=== PATIENT | female | born 1950 | race Caucasian/White ===

== ENCOUNTER 2024-11-06 16:00 | Emergency (ER) | payer BC ==
[2024-11-06 16:47] LABS: Absolute Basophils 0.1 K/uL (0-0.5); Absolute Lymphocytes (CBC) 1.7 K/uL (0.7-4.9); Absolute Monocytes 0.7 K/uL (0.1-1.3); Absolute Neutrophil 6.8 K/uL (1.8-8.0); Basophils % 0.6 % (0-1.3); Eosinophils % 0.4 % (0-4.4); Hematocrit 42.6 % (36.0-45.0); Lymphocytes % 18.3 % (15.3-44.8); MCH 30.3 pg (27.0-35.0); MCHC 32.9 g/dL (32.0-36.0); MCV 92.2 fL (80-100); MPV 7.7 fL (7.6-11.3); Monocytes % 7.2 % (3.3-12.3); Neutrophils % 73.5 % (41.7-73.7); Nucleated Red Blood Cells % 0.1 % (0-0); Platelets 222 thou/uL (152-406); RBC Red Blood Cell Count 4.62 M/uL (3.86-4.86)
--- NOTE | 2024-11-06 16:51 | RAD REPORT ---
EXAM: CT brain without contrast HISTORY: MENTAL STATUS CHANGE COMPARISON: None TECHNIQUE: Multiple contiguous axial images were obtained and a CT of the brain without contrast. Sag ittal and coronal reformats were performed. One or more of the following dose reduction techniques were used: Automated exposure control, adjust ment of the mA and/or kV according to patient size, and/or iterative reconstruction. FINDINGS: There is evidence of acute hemorrhage involving both frontal lobes, this includes left frontal subdur al blood measuring 5 mm in thickness, bilateral frontal subarachnoid blood and intraparenchymal blood in both frontal lobes.. Subdural hematoma extends superiorly along the left superiorly measurin g up to 6 mm in thickness. No midline shift is seen. No hydrocephalus. Trace pneumocephalus is seen right posterior occipital region likely related to large nondepressed right parieto-occipital skull f racture which extends to involve a portion of the right mastoid air cell. The visualized paranasal sinuses are essentially clear. IMPRESSION: Extensive acute intracranial trauma related findings as detailed. There is a large right-sided pariet o-occipital skull fracture extending to involve the right temporal bone as detailed. Acute left subdural hematoma is identified with acute subarachnoid blood as well as intraparenchymal hemorrhage in both frontal lobes. No hydrocephalus or midline shift shift. EXAM: CT of the cervical spine without contrast HISTORY: Neck pain, injury MENTAL STATUS CHANGE TECHNIQUE: Multiple contiguous axial images were obtained in a CT of the cervical spine without contr ast. Sagittal and coronal reformats were performed. FINDINGS: The vertebral bodies demonstrate normal height and alignment. No evidence of acute fracture or subluxation.. Moderate lower cervical degenerative spondylosis. No prevertebral soft tissue swelling is seen. The posterior facets are well aligned. Normal alignment of the skull base with the cervical spine is seen. Enlarged thyroid with large left thyroid nodule measuring 4 cm. The lung apices are unremarkable. IMPRESSION: No evidence of acute osseous abnormality of the cervical spine. The findings were communicated with Angie Price at 11/06/2024 4:48 PM by telephone.
[2024-11-06 16:54] LABS: PT Prothrombin Time 11.5 SECONDS (9.4-12.5); PTT, Activated Partial Thromb 31.5 SECONDS (24.3-36.9); Protime INR 1.1
[2024-11-06 17:07] LABS: ALT/SGPT 21 U/L (13-56); Albumin 3.3 g/dL (3.4-5.0); Albumin/Globulin Ratio 0.9 (1.1-1.8); Alkaline Phosphatase 68 U/L (45-117); Anion Gap 9.1 mEq/L (5.0-15.0); BUN Blood Urea Nitrogen 16 mg/dL (7-18); Bicarbonate 25 mEq/L (21-32); Bilirubin Direct 0.3 mg/dL (0-0.2); Bilirubin Indirect, Calculated 1.1 mg/dL (0.2-0.8); Bilirubin Total 1.4 mg/dL (0.2-1.0); Globulin 3.7 g/dL (2.3-3.5); Glomerular Filtration Rate 57 ml/min (=/>90); Glucose Level 119 mg/dL (74-106); Sodium Level 138 mEq/L (136-145); Troponin High Sensitivity 8.7 pg/mL (<58.9)
[2024-11-06 17:08] LABS: AST/SGOT 31 U/L (15-37); Potassium 4.1 mEq/L (3.5-5.1)
--- NOTE | 2024-11-06 17:09 | EDPHYS ---
Physician Documentation [facility] Name: Helen Price Age: 73 yrs Sex: Female : 1950 Arrival Date: 11/06/2024 Time: 16:00 Bed 20 Private MD: ED Physician Angie Price HPI: 11/06 16:57 This 73 yrs old Female presents to ER via EMS with complaints of Altered Mental Status, sp3 fall with head injury. 16:57 73-year-old female with a history of hyperlipidemia presents via EMS for presumed fall. sp3 Patient was found by outside of their RV on the concrete pad with small hematoma to the back of her head. When they arrived she was prone covered by blanket. She was maintaining her airway but was unable to speak. She does not follow commands but is awake and alert. Grossly moves all extremities. EMS gave 8 mg of intranasal Narcan due to small pupil size based on their exam. This had no effect. Patient was transferred here and is apparently and route. ROS, history and physical limited secondary to patient nonverbal.. Historical: - Allergies: 17:00 Bees; kc6 - Home Meds: 16:12 Unable to obtain [Active]; kc6 - PMHx: 16:12 Hypercholesterolemia; kc6 17:00 Osteoporosis; kc6 - PSHx: 17:00 None; kc6 - Immunization history:: Adult Immunizations unknown. - Infectious Disease History:: Denies. - Social history:: Smoking status: unknown. ROS: 17:00 Unable to obtain ROS due to altered mental status, sp3 Exam: 17:00 Chest/axilla: Normal chest wall appearance and motion. Nontender with no deformity. sp3 No lesions are appreciated. Cardiovascular: Regular rate and rhythm with a normal S1 and S2. No gallops, murmurs, or rubs. Normal PMI, no JVD. No pulse deficits. Respiratory: Lungs have equal breath sounds bilaterally, clear to auscultation and percussion. No rales, rhonchi or wheezes noted. No increased work of breathing, no retractions or nasal flaring. Abdomen/GI: Soft, non-tender, with normal bowel sounds. No distension or tympany. No guarding or rebound. No evidence of tenderness throughout. Skin: Warm, dry with normal turgor. Normal color with no rashes, no lesions, and no evidence of cellulitis. 17:00 Head/face: Right sided low parietal hematoma noted.. 17:00 Unable to obtain exam due to altered mental status, 17:09 ECG was reviewed by the Attending Physician. EKG demonstrates normal sinus rhythm at 77 sp3 bpm with normal intervals, normal QRS, normal axis, nonspecific diffuse ST/T changes without evidence of acute ischemia. Vital Signs: 16:09 BP 160 / 94; Pulse 77; Resp 15 S; Temp 97.8(TE); Pulse Ox 96% on R/A; kc6 16:43 BP 161 / 83; Pulse 95; Resp 18 S; Pulse Ox 96% on R/A; kc6 17:09 BP 167 / 86; Pulse 96; Resp 20 S; Pulse Ox 93% on R/A; Weight 77.11 kg; Height 5 ft. 6 kc6 in. ; 17:36 BP 177 / 86; Pulse 100; Resp 18 S; Pulse Ox 94% on R/A; kc6 17:09 Body Mass Index 27.44 (77.11 kg, 167.64 cm) kc6 NIH Stroke Scale Scores: 16:00 NIHSS Score: 5 kc6 Elyse Coma Score: 16:00 Eye Response: spontaneous(4). Motor Response: localizes pain(5). Verbal Response: kc6 none(1). Total: 10. Trauma Score (Adult): 16:00 Eye Response: spontaneous(1); Verbal Response: none(0); Motor Response: localizes kc6 pain(1); Systolic BP: > 89 mm Hg(4); Respiratory Rate: 10 to 29 per min(4); Elyse Score: 10; Trauma Score: 10 MDM: 16:12 Medical Screening Exam initiated sp3 17:06 Data reviewed: vital signs, EMS record, lab test result(s), radiologic studies. ED sp3 course: Patient placed in room and immediate stat CT scan ordered which demonstrates large parietal occipital skull fracture with left-sided subdural hemorrhage and associated subarachnoid hemorrhage as well as intraparenchymal spread of blood. Patient is currently awake, alert but noncommunicative coupled with not following commands fully. She is maintaining her airway. Blood pressure is currently 161/80 with normal remainder vital signs. Will watch closely. I discussed the case with transfer center at [facility] who is excepted to the ER without conference given her findings. CBC and coagulation profile are normal. Chemistries are pending. We will now transfer patient emergently to [facility] trauma center.. 11/06 16:22 Order name: Acetaminophen; Complete Time: 17:21 11/06 16:22 Order name: Basic Metabolic Panel; Complete Time: 17:21 3 11/06 16:22 Order name: CBC with Diff; Complete Time: 17:02 11/06 16:22 Order name: ETOH Level; Complete Time: 17:21 11/06 16:22 Order name: Hepatic Function; Complete Time: 17:21 11/06 16:22 Order name: PT-INR; Complete Time: 16:56 11/06 16:22 Order name: Ptt, Activated; Complete Time: 16:56 11/06 16:22 Order name: Salicylate; Complete Time: 17:21 11/06 16:22 Order name: Urinalysis w/ reflexes; Complete Time: 17:21 11/06 16:22 Order name: Urine Drug Screen; Complete Time: 17:28 11/06 16:23 Order name: Troponin High Sensitivity; Complete Time: 17:21 11/06 16:23 Order name: CT Head C Spine; Complete Time: 16:51 11/06 16:56 Order name: CXR XRAY; Complete Time: 17:11/06 16:22 Order name: EKG; Complete Time: 16:23 11/06 16:22 Order name: EKG - Nurse/Tech; Complete Time: 16:23 11/06 16:22 Order name: IV Saline Lock; Complete Time: 16:23 11/06 16:22 Order name: Labs collected and sent; Complete Time: 16:23 11/06 16:22 Order name: Suicide Screening ([place]); Complete Time: 16:23 Administered Medications: 17:23 Drug: Labetalol IV 10 mg IV at calculated rate once Route: IV; Rate: calculated rate; kc6 Site: right antecubital; 17:43 Follow up: Response: No adverse reaction; Blood pressure is unchanged; IV Status: kc6 Completed infusion; IV Intake: 2ml Disposition: 17:07 Critical Care:. sp3 Disposition Summary: 11/06/24 17:08 Transfer Ordered Notes: Transfer Location: [facility] sp3 Reason: Higher level of care sp3 Condition: Critical sp3 Problem: new sp3 Symptoms: have worsened sp3 Accepting Physician: [facility] neurosurgical trauma team(11/06/24 17:43) kc6 Diagnosis - Fall, skull fracture, traumatic subdural hemorrhage, traumatic subarachnoid sp3 hemorrhage, traumatic intraparenchymal hemorrhage Forms: - Medication Reconciliation Form sp3 - SBAR form sp3 Critical care time excluding procedures: 17:07 Critical care time: Bedside Care: 10 minutes, Consultation: 10 minutes, Family sp3 Intervention: 10 minutes. Total time: 30 minutes NIH Stroke Scale - NIH Stroke Score Date: 11/06/2024 Time: 16:00 Total Score = 5 10. Dysarthria (speech clarity - read or repeat words) - 1(Mild to Moderate) 11. Extinction and Inattention (visual/tactile/auditory/spatial/personal) - 0(No abnormality) 1a. Level of Consciousness (LOC) - 0(Alert) 1b. Level of Consciousness (LOC) (Month \T\ Age) - 1(One) 1c. LOC Commands (Open \T\ Closes Eyes/Fish Hatchery Worker) - 1(One) 2. Best Gaze (Lateral Gaze Paresis) - 0(Normal) 3. Visual Field Loss - 0(No visual loss) 4. Facial Palsy - 0(Normal) 5a. Left Arm: Motor (10-second hold) - 0(No drift) 5b. Right Arm: Motor (10-second hold) - 0(No drift) 6a. Left Leg: Motor (5-second hold - always test supine) - 0(No drift) 6b. Right Leg: Motor (5-second hold - always test supine) - 0(No drift) 7. Limb Ataxia (finger/nose \T\ heel/morris - test with eyes open) - 0(Absent) 8. Sensory Loss (pinprick arms/legs/face) - 0(Normal) 9. Best Language: Aphasia (description/naming/reading) - 2(Severe aphasia) Initials: kc6 Signatures: Dispatcher [employer] Angie Durán MD MD sp3 Raysa Hurley RN RN kc6 Corrections: (The following items were deleted from the chart) 16:23 16:23 ACETAMINOPHEN+C.LAB.BRZ ordered. EDMS EDMS 16:23 16:23 BASIC METABOLIC PANEL+C.LAB.BRZ ordered. EDMS EDMS 16:23 16:23 CBC+H.LAB.BRZ ordered. EDMS EDMS 16:23 16:23 ETHANOL+C.LAB.BRZ ordered. EDMS EDMS 16:23 16:23 HEPATIC FUNCTION+C.LAB.BRZ ordered. EDMS EDMS 16:23 16:23 PROTIME (+INR)+COAG.LAB.BRZ ordered. EDMS EDMS 16:23 16:23 PTT, ACTIVATED+COAG.LAB.BRZ ordered. EDMS EDMS 16:23 16:23 SALICYLATE+C.LAB.BRZ ordered. EDMS EDMS 16:23 16:23 Urinalysis+U.LAB.BRZ ordered. EDMS EDMS 16:23 16:23 URINE DRUG SCREEN+UC.LAB.BRZ ordered. EDMS EDMS 17:15 16:12 Allergies: Unable to obtain; kc6 kc6 17:15 16:12 PSHx: Unable to Obtain; kc6 kc6 17:43 17:08 [facility] neurosurgical trauma team sp3 kc6
--- NOTE | 2024-11-06 17:09 | ER ---
Nurse's Notes [facility] Name: Helen Price Age: 73 yrs Sex: Female : 1950 Arrival Date: 11/06/2024 Time: 16:00 Bed 20 Private MD: Diagnosis: Fall, skull fracture, traumatic subdural hemorrhage, traumatic subarachnoid hemorrhage, traumatic intraparenchymal hemorrhage Presentation: 11/06 16:09 Chief complaint: EMS states: they were toned out for a fall. upon EMS arrival pt was kc6 found prone on the floor covered up. EMS reports says she hit her head, unknown LOC or if on blood thinners. EMS gave 8mg of Narcan intranasally. Coronavirus screen: At this time, the client does not indicate any symptoms associated with coronavirus-19. Ebola Screen: No symptoms or risks identified at this time. Initial Sepsis Screen: Does the patient meet any 2 criteria? Altered Mental Status. Does the patient have a suspected source of infection? No. Patient's initial sepsis screen is negative. Risk Assessment: Do you want to hurt yourself or someone else? Unable to obtain. Onset of symptoms was November 06, 2024. Care prior to arrival: Medication(s) given: Normal saline infusion, 500 mL, Narcan 8mg Intranasal IV initiated. 20 GA, in the left antecubital area, Glucose check: 138 Oxygen administered. via nasal cannula. 16:09 Method Of Arrival: EMS: [facility] 16:09 Acuity: ASHLEY 2 kc6 Historical: - Allergies: 17:00 Bees; kc6 - Home Meds: 16:12 Unable to obtain [Active]; kc6 - PMHx: 16:12 Hypercholesterolemia; kc6 17:00 Osteoporosis; kc6 - PSHx: 17:00 None; kc6 - Immunization history:: Adult Immunizations unknown. - Infectious Disease History:: Denies. - Social history:: Smoking status: unknown. Screenin:00 [place] Swallow Protocol Exclusion Criteria: Unable to remain alert for testing: Yes Brief [facility] Cognitive Screen What is your name? Normal, Where are you right now? Abnormal What year is it? Abnormal Oral Mechanism Examination Facial Symmetry: Abnormal Motion: Abnormal Lip Closure: Abnormal Oral Mechanism Result: Abnormal: FAIL. 3 oz Water Swallow Challenge: Pt able to drink all water without stopping, coughing, choking or throat clearing: No Result: FAIL MD Notified: Angie Price MD. 16:00 VAN Screening: Arm Drift: Minor drift. Visual Disturbance: No visual disturbance noted. kc6 Aphasia: Expressive aphasia noted. Provider notified of +VAN scoring. Neglect: No neglect noted. 16:13 [facility] ED Fall Risk Assessment (Adult) History of falling in the last 3 months, kc6 including since admission Yes- physiologic fall (2 pts) Confusion or Disorientation Yes (5 pts) Intoxicated or Sedated No (0 pts) Impaired Gait No (0 pts) Mobility Assist Device Used No (0 pt) Altered Elimination No (0 pt) Score/Fall Risk Level 3 or more points = High Risk Oriented to surroundings, Maintained a safe environment, Educated pt \\T\\ family on fall prevention, incl call for assistance when getting out of bed. Abuse screen: Denies threats or abuse. Denies injuries from another. Nutritional screening: No deficits noted. Tuberculosis screening: No symptoms or risk factors identified. Assessment: 16:13 General: Appears in no apparent distress. comfortable, well groomed, well developed, kc6 Behavior is calm, cooperative, drowsy. Pain: Unable to use pain scale. Patient is disoriented. Neuro: Level of Consciousness is confused, post ictal, Oriented to none Facial symmetry appears normal, Facial symmetry: tongue is midline, Pupils are pinpoint, Seizure activity Patient is post-ictal at this time. Cardiovascular: Capillary refill < 3 seconds Rhythm is regular. Respiratory: Airway is patent Trachea midline Respiratory effort is even, unlabored, Respiratory pattern is regular, symmetrical. GI: No signs and/or symptoms were reported involving the gastrointestinal system. : No signs and/or symptoms were reported regarding the genitourinary system. EENT: No signs and/or symptoms were reported regarding the EENT system. Derm: No signs and/or symptoms reported regarding the dermatologic system. Skin is intact, is healthy with good turgor, Skin is pink, warm \\T\\ dry. Musculoskeletal: No signs and/or symptoms reported regarding the musculoskeletal system. Circulation, motion, and sensation intact. Range of motion: intact in all extremities. 16:34 Reassessment: pt to CT via stretcher with this nurse. pt with eyes open and smiling. pt kc6 stating her name only at this time. 17:10 Reassessment: Patient appears in no apparent distress at this time. No changes from kc6 previously documented assessment. Patient and/or family updated on plan of care and expected duration. Pain level reassessed. 17:12 Reassessment: Dr. Price at bedside speaking with regarding patients condition. kc6 states, "she was carrying too much stuff upstairs and she fell backwards and hit her head on the concrete." states they were loading stuff up onto a truck. 17:39 Reassessment: life flight at bedside. pts blood pressure is 177/86. verbal orders kc6 received from Dr. Price to administer 20mg of Labetalol IV. administered by life flight RN from their own supply. 17:43 Reassessment: Patient appears in no apparent distress at this time. No changes from kc6 previously documented assessment. Patient and/or family updated on plan of care and expected duration. Pain level reassessed. Vital Signs: 16:09 BP 160 / 94; Pulse 77; Resp 15 S; Temp 97.8(TE); Pulse Ox 96% on R/A; kc6 16:43 BP 161 / 83; Pulse 95; Resp 18 S; Pulse Ox 96% on R/A; kc6 17:09 BP 167 / 86; Pulse 96; Resp 20 S; Pulse Ox 93% on R/A; Weight 77.11 kg; Height 5 ft. 6 kc6 in. ; 17:36 BP 177 / 86; Pulse 100; Resp 18 S; Pulse Ox 94% on R/A; kc6 17:09 Body Mass Index 27.44 (77.11 kg, 167.64 cm) kc6 [place] Coma Score: 16:00 Eye Response: spontaneous(4). Motor Response: localizes pain(5). Verbal Response: kc6 none(1). Total: 10. Trauma Score (Adult): 16:00 Eye Response: spontaneous(1); Verbal Response: none(0); Motor Response: localizes kc6 pain(1); Systolic BP: > 89 mm Hg(4); Respiratory Rate: 10 to 29 per min(4); Elyse Score: 10; Trauma Score: 10 NIH Stroke Scale Scores: 16:00 NIHSS Score: 5 kc6 ED Course: 16:09 Patient arrived in ED. kc6 16:11 Angie Price MD is Attending Physician. sp3 16:12 Triage completed. kc6 16:12 Arm band placed on. kc6 16:13 Patient has correct armband on for positive identification. Placed in gown. Bed in low kc6 position. Call light in reach. Side rails up X2. security monitor on. Pulse ox on. NIBP on. Door closed. Noise minimized. Lights dimmed. Warm blanket given. Pillow given. Verbal reassurance given. 16:13 Maintain EMS IV. Dressing intact. Good blood return noted. Site clean \\T\\ dry. Gauge \\T\\ naomi 6 site: 20G LAC. Flushed with 10 mL NS. Patient maintains SpO2 saturation greater than 95% on room air. 16:15 Raysa Hurley RN is Primary Nurse. kc6 16:34 CT Head C Spine In Process Unspecified. EDMS 16:43 Inserted saline lock: 22 gauge in right antecubital area, using aseptic technique. kc6 Blood collected. Flushed with 10 mL NS. 17:00 Repositioned patient. Cleaned of incontinence. Linen changed. kc6 17:00 initiated transfer with Ann at [facility]. bc6 17:00 Rigid cervical collar applied and checked by physician. kc6 17:00 Straight cath inserted, using sterile technique, 14 Fr. Specimen obtained. Returned kc6 clear yellow urine. Patient tolerated well. 17:09 accepted. bc6 17:16 CXR XRAY In Process Unspecified. EDMS 17:41 No provider procedures requiring assistance completed. Patient transferred, IV remains kc6 in place. Administered Medications: 17:23 Drug: Labetalol IV 10 mg IV at calculated rate once Route: IV; Rate: calculated rate; kc6 Site: right antecubital; 17:43 Follow up: Response: No adverse reaction; Blood pressure is unchanged; IV Status: kc6 Completed infusion; IV Intake: 2ml Medication: 17:42 VIS not applicable for this client. kc6 Intake: 17:43 IV: 2ml; Total: 2ml. kc6 Outcome: 17:08 ER care complete, transfer ordered by . sp3 17:42 Transferred by helicopter to [facility], Transfer form completed. Note: kc6 report called to NAN Wang 17:42 critical 17:42 Instructed on the need for transfer, 17:43 Patient left the ED. kc6 NIH Stroke Scale - NIH Stroke Score Date: 11/06/2024 Time: 16:00 Total Score = 5 10. Dysarthria (speech clarity - read or repeat words) - 1(Mild to Moderate) 11. Extinction and Inattention (visual/tactile/auditory/spatial/personal) - 0(No abnormality) 1a. Level of Consciousness (LOC) - 0(Alert) 1b. Level of Consciousness (LOC) (Month \\T\\ Age) - 1(One) 1c. LOC Commands (Open \\T\\ Closes Eyes/[employer] Server) - 1(One) 2. Best Gaze (Lateral Gaze Paresis) - 0(Normal) 3. Visual Field Loss - 0(No visual loss) 4. Facial Palsy - 0(Normal) 5a. Left Arm: Motor (10-second hold) - 0(No drift) 5b. Right Arm: Motor (10-second hold) - 0(No drift) 6a. Left Leg: Motor (5-second hold - always test supine) - 0(No drift) 6b. Right Leg: Motor (5-second hold - always test supine) - 0(No drift) 7. Limb Ataxia (finger/nose \\T\\ heel/morris - test with eyes open) - 0(Absent) 8. Sensory Loss (pinprick arms/legs/face) - 0(Normal) 9. Best Language: Aphasia (description/naming/reading) - 2(Severe aphasia) Initials: kc6 Signatures: Dispatcher [employer] Angie Durán MD MD sp3 Raysa Hurley RN RN kc6 Teodora Beckham 6 Corrections: (The following items were deleted from the chart) 17:11 16:13 General: Appears in no apparent distress. comfortable, well groomed, well kc6 developed, Behavior is calm, cooperative, appropriate for age, drowsy, kc6 17:11 16:13 Neuro: Level of Consciousness is confused, post ictal, Oriented to none kc6 Facial symmetry appears normal, Facial symmetry: tongue is midline, Pupils are pinpoint, Seizure activity Patient is post-ictal at this time. kc6 17:14 17:12 Reassessment: Dr. Price at bedside speaking with regarding kc6 patients condition kc6 17:15 16:12 Allergies: Unable to obtain; kc6 kc6 17:15 16:12 PSHx: Unable to Obtain; kc6 kc6 17:16 17:09 BP 167 / 86; Pulse 96bpm; Resp 20bpm; Spontaneous; Pulse Ox 93% RA; kc6 kc6 17:39 17:12 Reassessment: Dr. Price at bedside speaking with regarding kc6 patients condition. states, "she was carrying too much stuff upstairs and she fell backwards and hit her head." [facility] 17:45 17:19 life flight called [place] [id number] 17:45 17:43 flight here 6 6
[2024-11-06 17:19] LABS: Specific Gravity 1.018 (1.005-1.030); Sqamous Epithelial None Seen /HPF (None Seen); Urine Bacteria None Seen /HPF (<20); Urine Bilirubin NEGATIVE (Negative); Urine Blood 1+ (Negative); Urine Clarity Clear (Clear); Urine Color Light-Yellow (Yellow); Urine Culture Reflex Order NOT NEEDED; Urine Glucose NEGATIVE (Negative); Urine Ketones TRACE (Negative); Urine Microscopic Reflex YN ORDER UMIC; Urine Nitrite NEGATIVE (Negative); Urine Protein NEGATIVE (Negative); Urine Urobilinogen Normal (Normal); Urine WBC <5 /HPF (<5)
[2024-11-06] MEDS ORDERED: LABETALOL 20 MG/4ML SYRINGE IV ONE (17:19)
--- NOTE | 2024-11-06 17:20 | RAD REPORT ---
EXAMINATION: ONE VIEW CHEST XR CLINICAL INDICATION: TRAUMA TECHNIQUE: Frontal chest projection is submitted. Examination is limited by patient positioning and t echnique. COMPARISON: No prior exam. FINDINGS: The lungs are well inflated and clear. The heart is upper limit of normal in size. No displaced fract ures identified. IMPRESSION: No acute intrathoracic abnormalities.
[2024-11-06 17:26] LABS: Barbiturates NEGATIVE (NEGATIVE); Benzodiazepines NEGATIVE (NEGATIVE); Cocaine NEGATIVE (NEGATIVE); METHAMPHETAM NEGATIVE (NEGATIVE); Methadone NEGATIVE (NEGATIVE); Opiates NEGATIVE (NEGATIVE); Phencyclidine NEGATIVE (NEGATIVE); THC Cannibis NEGATIVE (NEGATIVE)
[2024-11-07 18:20] VITALS: TEMP 97.8
[2024-11-07 18:25] VITALS: BP 177/86; O2SAT 94
--- NOTE | 2024-11-10 12:15 | EKG ---
Test Date: 2024-11-06 Test Time: 16:23:19 Welfare Case Worker: TANVIR MEASUREMENT RESULTS: Intervals: Rate: 77 AR: 156 QRSD: 78 QT: 384 QTc: 434 [place]: P: 59 AR: 156 QRS: 60 T: 22 INTERPRETIVE STATEMENTS: Normal sinus rhythm Normal ECG No previous ECG available for comparison Electronically Signed On 11-10-24 12:11:44 INTEGRATED CIRCUIT LAYOUT DESIGNER by Matthew Bal
== END 2024-11-06 17:43 | disposition short-term general hospital (02) ==
LOC: ER 16:00
DX: S02.0XXA Fracture of vault of skull, initial encounter for closed fracture (principal); S06.5X0A Traumatic subdural hemorrhage without loss of consciousness, initial encounter; S06.6X0A Traumatic subarachnoid hemorrhage without loss of consciousness, initial encounter; S06.340A Traumatic hemorrhage of right cerebrum without loss of consciousness, initial encounter; W18.30XA Fall on same level, unspecified, initial encounter
CPT/HCPCS: 36415; 51702; 70450; 71045; 72125; 80048; 80076; 80143; 80179; 80307; 81001; 82077; 84484; 85025; 85610; 85730; 93005; 96365; 99285